=== PATIENT | female | born 1960 | race Caucasian/White ===

== ENCOUNTER 2022-09-03 10:49 | Outpatient (CLI) | payer OTHER | END 2022-09-03 10:50 | disposition home or self-care (01) | LOC: CSHMAMMO 10:49 | PROVIDERS: ATTEND Nurse Practitioner Family | DX: Z12.31 Encounter for screening mammogram for malignant neoplasm of breast (principal); Z98.82 Breast implant status | CPT/HCPCS: 77063; 77067 ==

== ENCOUNTER 2023-09-09 09:45 | Outpatient (CLI) | payer OTHER | END 2023-09-09 09:46 | disposition home or self-care (01) | LOC: CSHMAMMO 09:45 | PROVIDERS: ATTEND Family Medicine | DX: Z12.31 Encounter for screening mammogram for malignant neoplasm of breast (principal); Z98.82 Breast implant status | CPT/HCPCS: 77063; 77067 ==